=== PATIENT | male | born 1935 | race Caucasian/White ===

== ENCOUNTER 2023-05-18 16:40 | Emergency (ER) | payer OTHER ==
[~2023-05-18] VITALS: Ht 177.8 cm; Wt 75.3 kg
[2023-05-18] MEDS ORDERED: IV NORMAL SALINE 1000 ML BAG IV ONE ×2 (17:00→19:00)
[2023-05-18] MEDS ORDERED: CEFTRIAXONE 1 G in IV DEXTROSE 5% 50 ML IV ONE ×2 (17:00→19:00)
[2023-05-18] MEDS ORDERED: VANCOMYCIN IV 1,000 MG in IV DEXTROSE 5% 250 ML IV ONE (17:00)
[2023-05-18] MEDS ORDERED: CEFTRIAXONE 1 G VIAL ONE (17:44)
[2023-05-18] MEDS ORDERED: VANCOMYCIN IV 200 ML ONE (17:44)
[2023-05-18 18:05] LABS: BASOPHILS % (AUTO) 0.3 % (0.0-2.0); EOSINOPHILS % (AUTO) 0.3 % (0.0-7.0); HEMOGLOBIN 12.5 g/dL (12.5-16.3); LYMPHOCYTES # (AUTO) 0.6 K/uL (0.8-4.8); LYMPHOCYTES % (AUTO) 8.3 % (20.5-51.5); MEAN CORPUSCULAR HEMOGLOBIN 29.9 uug (23.8-33.4); MEAN CORPUSCULAR HGB CONC 34 g/dL (32.5-36.3); MEAN CORPUSCULAR VOLUME 88.9 fL (73.0-96.2); MONOCYTES # (AUTO) 0.5 K/uL (0.1-1.30); MONOCYTES % (AUTO) 7.2 % (0.0-11.0); NEUTROPHILS % (AUTO) 83.9 % (38.5-71.5); PLATELET COUNT (AUTO) 158 K/uL (152-348); RED BLOOD CELL COUNT(AUTO) 4.16 MIL/uL (4.06-5.63); RED CELL DISTRIBUTION WIDTH 13.7 % (12.1-16.2); WHITE BLOOD COUNT (AUTO) 7.2 K/uL (3.6-10.2)
[2023-05-18 18:06] LABS: DIFFERENTIAL COMMENT 1
[2023-05-18 18:13] LABS: *BLOOD, URINE 2+ (NEGATIVE); *CLARITY,URINE CLOUDY (CLEAR); *COLOR,URINE YELLOW (YELLOW); *KETONES,URINE TRACE (NEGATIVE); *UROBILINOGEN,URINE 0.2 E.U./dl (NORMAL); LEUKOCYTE ESTERASE ,URINE 3+ (NEGATIVE); NITRITE, URINE POSITIVE (NEGATIVE); UGLUCOSE NEGATIVE (NEGATIVE)
[2023-05-18 18:16] LABS: CALCIUM 9.2 mg/dL (8.5-10.1); CARBON DIOXIDE 25 mmol/L (21-32); CHLORIDE 99 mmol/L (98-107); CREATININE 1.5 mg/dL (0.6-1.3); GLUCOSE 166 mg/dL (74-106); POTASSIUM 3.7 mmol/L (3.5-5.1); SODIUM SERUM 136 mmol/L (136-145); UREA NITROGEN, BLOOD 20 mg/dL (7-18)
[2023-05-18] MEDS ORDERED: diphenhydrAMINE 50 MG/1 ML VIAL ONE (18:29)
[2023-05-18 18:34] LABS: ALANINE AMINOTRANSFERASE 18 U/L (16-63); ALBUMIN 3.5 g/dL (3.4-5.0); ALKALINE PHOSPHATASE 70 U/L (50-136); ASPARTATE AMINOTRANSFERASE 13 U/L (15-37); BILIRUBIN,DIRECT 0.2 mg/dL (0.0-0.2); BILIRUBIN,TOTAL 0.8 mg/dL (0.2-1.0); NT-PRO BNP 448 pg/mL (0-125); TOTAL PROTEIN, SERUM 6.9 g/dL (6.4-8.2)
[2023-05-18 18:38] LABS: *BILIRUBIN,URIN 1+ (NEGATIVE); *PROTEIN,URINE 3+ (NEGATIVE)
[2023-05-18 18:40] LABS: BACTERIA,URINE FEW /HPF (NONE SEEN)
[2023-05-18] MEDS ORDERED: diphenhydrAMINE 50 MG/1 ML VIAL IV ONE (19:00)
[2023-05-18] MEDS ORDERED: TDAP DIPH,PERTUSS,TET VAC/PF 0.5 ML DISP.SYRIN IM ONE ×2 (23:15→23:33)
[2023-05-18 23:53] VITALS: O2SAT 96
== END 2023-05-19 00:14 | disposition short-term general hospital (02) ==
LOC: ER 16:42
DX: G93.40 Encephalopathy, unspecified (principal); N39.0 Urinary tract infection, site not specified; R41.82 Altered mental status, unspecified; R07.89 Other chest pain; Z86.73 Personal history of transient ischemic attack (TIA), and cerebral infarction without residual deficits; Z88.1 Allergy status to other antibiotic agents; Z20.822 Contact with and (suspected) exposure to COVID-19
CPT/HCPCS: 99291; 96365; 70450; 96375; 96361; 87426; 80076; 80048; 81001; 83880; 85025; 84145; 85730; 87040 ×2; 84484; 36415; 93005; 71045; 90715; 90471; 83605; J0696; J1200; J3370; J7040 ×2; A4663; C1758

== ENCOUNTER 2025-05-04 13:30 | Emergency (ER) | payer OTHER ==
[~2025-05-04] VITALS: Ht 177.8 cm; Wt 77.1 kg
[2025-05-04] MEDS ORDERED: ATOR80TA (13:52)
[2025-05-04] MEDS ORDERED: TAMS-3 (13:52)
[2025-05-04] MEDS ORDERED: LOSA100T31 PO (13:52)
[2025-05-04] MEDS ORDERED: AMLO2.5T4 PO (13:52)
[2025-05-04] MEDS ORDERED: CLOP75TA33 PO (13:52)
[2025-05-04] MEDS ORDERED: FINA5TAB11 PO (13:52)
[2025-05-04 14:26] LABS: PLATELET COUNT (AUTO) 145 K/uL (152-348); RED BLOOD CELL COUNT(AUTO) 4.04 MIL/uL (4.06-5.63); RED CELL DISTRIBUTION WIDTH 14.1 % (12.1-16.2); WHITE BLOOD COUNT (AUTO) 6.0 K/uL (3.6-10.2)
[2025-05-04] MEDS: IV NS 1000 ML 1,000 ML IV ONE (14:37)
[2025-05-04 14:44] LABS: ASPARTATE AMINOTRANSFERASE 16 U/L (15-37); CREATININE 1.2 mg/dL (0.6-1.3); SODIUM SERUM 143 mmol/L (136-145); TOTAL PROTEIN, SERUM 6.5 g/dL (6.4-8.2); UREA NITROGEN, BLOOD 18 mg/dL (7-18)
[2025-05-04 15:47] LABS: IRON, SERUM 57 ug/dL (50-175)
[2025-05-04 18:22] LABS: *BILIRUBIN,URIN NEGATIVE (NEGATIVE); *BLOOD, URINE NEGATIVE (NEGATIVE); *CLARITY,URINE CLEAR (CLEAR); *COLOR,URINE YELLOW (YELLOW); *KETONES,URINE NEGATIVE (NEGATIVE); *PROTEIN,URINE NEGATIVE (NEGATIVE); *UROBILINOGEN,URINE 0.2 E.U./dl (NORMAL); LEUKOCYTE ESTERASE ,URINE NEGATIVE (NEGATIVE); NITRITE, URINE NEGATIVE (NEGATIVE); UGLUCOSE NEGATIVE (NEGATIVE)
[2025-05-04 18:30] VITALS: BP 183/72; O2SAT 99
[2025-05-04] MEDS ORDERED: CLONIDINE HCL 0.1 MG TABLET ONE (18:31)
[2025-05-04 18:32] VITALS: BP 183/72
[2025-05-04] MEDS: CLONIDINE HCL 0.1 MG TABLET PO ONE (18:32)
== END 2025-05-04 19:42 | disposition short-term general hospital (02) ==
LOC: ER 13:30
DX: D50.9 Iron deficiency anemia, unspecified (principal); R55 Syncope and collapse; R06.02 Shortness of breath; Z79.02 Long term (current) use of antithrombotics/antiplatelets; Z79.899 Other long term (current) drug therapy; Z86.73 Personal history of transient ischemic attack (TIA), and cerebral infarction without residual deficits; Z88.1 Allergy status to other antibiotic agents
CPT/HCPCS: 99285; 96360; 96361; 71045; 80076; 80048; 81003; 83880; 83550; 83735; 85025; 85044; 85379; 85730; 84484 ×2; 36415; 93005; 83605; J7040; 70030-TC; A4606; A4663